=== PATIENT | male | born 1995 | race Caucasian/White ===

== ENCOUNTER 2018-10-19 01:59 | Emergency (ER) | payer OTHER ==
[~2018-10-19] VITALS: Ht 170.2 cm; Wt 95.3 kg
[~2018-10-19 01:59] MED LIST: [UNRECOGNIZED DRUG - OTHER]
[2018-10-19 02:33] LABS: ABSOLUTE NEUTROPHILS 16.1 thou/uL (1.4-8.2); BASOPHILS 0.4 % (0.0-2.0); EOSINOPHILS 0.3 % (0.0-3.0); HEMATOCRIT 50.6 % (42.0-52.0); HEMOGLOBIN 17.1 gm/dL (14.0-18.0); MCH 29.2 pg (26.0-34.0); MCHC 33.8 g/dL (28.0-37.0); MCV 86.4 fL (80.0-100.0); MONOCYTES 8.6 % (1.0-8.0); PLATELET COUNT 317 thou/uL (150-400); POLYS 86.7 % (36.0-66.0); RBC 5.85 mil/uL (4.50-6.00); RDW 12.8 % (10.5-14.5); WBC 18.5 thou/uL (4.0-11.0)
[2018-10-19 02:39] LABS: CALCIUM 9.9 mg/dL (8.5-10.1); CREATININE 1.1 mg/dL (0.7-1.3); POTASSIUM 3.9 mmol/L (3.5-5.1)
[2018-10-19 02:45] LABS: DIRECT BILIRUBIN 0.3 mg/dL (<0.1-0.3); TOTAL BILIRUBIN 2.2 mg/dL (<0.1-1.0); TOTAL PROTEIN 8.7 g/dL (6.4-8.2)
[2018-10-19] MEDS ORDERED: CONCERTA54 M1 PO (03:05)
[2018-10-19 03:15] LABS: URINE BILIRUBIN NEGATIVE (Negative); URINE BLOOD NEGATIVE (Negative); URINE CLARITY CLEAR; URINE COLOR YELLOW; URINE GLUCOSE-RANDOM* NEGATIVE (Negative); URINE KETONES NEGATIVE (Negative); URINE LEUKOCYTES-REFLEX NEGATIVE (Negative); URINE NITRITE-REFLEX NEGATIVE (Negative); URINE PROTEIN (DIPSTICK) TRACE (Negative); URINE SPECIFIC GRAVITY 1.025 (1.005-1.035); URINE UROBILINOGEN 0.2 E.U./dl (0.2-1.0)
[2018-10-19] MEDS ORDERED: VANCOCIN 125 M125 M1 PO (04:07)
[2018-10-19] MEDS ORDERED: ZOFRAN ODT4 MG PO (04:07)
[2018-10-19] MEDS ORDERED: BENTYL 20 MG TA20 M1 PO (04:07)
[2018-10-19 04:21] VITALS: BP 135/69
== END 2018-10-19 04:22 | disposition home or self-care (01) ==
LOC: ER 01:59
PROVIDERS: Emergency Medicine
DX: R19.7 Diarrhea, unspecified (principal); R11.2 Nausea with vomiting, unspecified; F90.9 Attention-deficit hyperactivity disorder, unspecified type; Z88.0 Allergy status to penicillin